=== PATIENT | male | born 2000 | race Caucasian/White ===

== ENCOUNTER 2024-08-26 19:24 | Emergency (ER) | payer OTHER, SELFPAY ==
--- OUTSIDE RECORDS SUMMARY | 2024-08-26 19:30 | XMS_ITS | Clinical Summary ---
Author Organization [address] Address [address] [place] [address] Care Team Providers Care Journeyman Millwright Name Role Phone Tray Burrows MD Primary Care Provider [phone] Allergies No known active allergies Medications albuterol HFA (PROVENTIL HFA,VENTOLIN HFA,PROAIR HFA) 90 mcg/actuation inhalerIndications :Viral syndrome Inhale 2 puffs every 4 (four) hours as needed for wheezing or shortness of breath (cough) 18 g 4 Active inhalational spacing device (Aerochamber MV) spacerIndications: Viral syndrome Use with albuterol inhaler 1 each 4 Active ondansetron ODT (ZOFRAN-ODT) 4 mg disintegrating tabletIndications: Viral syndrome Take 1 tablet (4 mg total) by mouth every 8 (eight) hours as needed for nausea or vomiting 12 tablet 4 Active Active Problems No known active problems Encounters Date Type Department Care Team Description 07/18/2024 Telephone [facility] [address] [place] [address] Viry Smith NP from Last 3 Months Medical History Medical History Date Comments Atrial septal defect Patent fora men ovale - (Added by TW Conv) Social History Tobacco Use Types Packs/Day Years Used Date Smoking Tobacco: Never Assessed Sex and Gender Information Value Date Recorded Sex Assigned at Not on file Legal 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 Gender Identity Not on file Sexual Orientation Not on file Obstetrics History Last Filed Vital Signs Vital Sign Reading Time Taken Comments Blood Pressure 144/90 02/13/2024 10:13 AM BUILDING OFFICIAL Pulse 110 02/13/2024 10:13 AM BUILDING OFFICIAL Temperature 37.7 C (99.8 F) 02/13/2024 10:13 AM BUILDING OFFICIAL Respiratory Rate 18 02/13/2024 10:13 AM BUILDING OFFICIAL Oxygen Saturation 98% 02/13/2024 10:13 AM BUILDING OFFICIAL Inhaled Oxygen Concentration - - Weight 102.1 kg (225 lb) 02/13/2024 10:13 AM BUILDING OFFICIAL Height 177.8 cm (5' 10) 02/13/2024 10:13 AM BUILDING OFFICIAL Body Mass Index 32.28 02/13/2024 10:13 AM BUILDING OFFICIAL Plan of Treatment Health Maintenance Due Date Last Done Comments Depression Screening 2002 Hepatitis C Screening 2002 HPV Vaccines (2 - Male 2-dos e series) 03/23/2017 09/20/2016 Meningococcal B Vaccine (1 o f 2 - Standard) 2018 Regular Well Visit/Exam 18-64 02/22/2020 Covid-19 Vaccine (2 - 2023-2 5 season) 2023 11/15/2021 DTaP/Tdap/Td Vaccine (7 - Td or Tdap) 11/29/2023 11/28/2013, 11/28/2013, 06/10/2003, Additional history exists Influenza Vaccine (#1) 2024 11/16/2021, 2002 Hepatitis B Screening Completed 2002 , 2002, 2002 Pneumococcal vaccine <65 Completed 004, 2002, 2002, Additional history exists Varicella Vaccines Completed 09/20/2016, 06/10/2003 [place] [facility] [place] [address] Care Teams Journeyman Millwright Relationship Specialty Start Date End Date Tray Burrows MD [address] [place] [address] PCP - General 04/13/11
--- OUTSIDE RECORDS SUMMARY | 2024-08-26 19:30 | XMS_ITS | Referral Summary ---
Author Organization [facility] [place] [address] [facility] Address [address] [place] [address] Care Team Providers Care Slasher Operator Name Role Phone Tray Burrows MD Primary Care Provider [phone] Encounters Date Type Department Care Team Description 07/18/2024 Telephone [facility] [address] [place] [address] Viry Smith NP from Last 3 Months Allergies No known active allergies Medications albuterol [...] Active Active Problems No known active problems Social History Tobacco Use Types Packs/Day Years Used Date Smoking Tobacco: Never Assessed Sex and Gender Information Value Date Recorded Sex Assigned at Not on file 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 Gender Identity Not on file Sexual Orientation Not on file Last Filed Vital Signs Vital Sign Reading Time Taken Comments Blood Pressure 144/90 02/13/2024 10:13 AM SENIOR CONSTRUCTION PROJECT MANAGER Pulse 110 02/13/2024 10:13 AM SENIOR CONSTRUCTION PROJECT MANAGER Temperature 37.7 C (99.8 F) 02/13/2024 10:13 AM SENIOR CONSTRUCTION PROJECT MANAGER Respiratory Rate 18 02/13/2024 10:13 AM SENIOR CONSTRUCTION PROJECT MANAGER Oxygen Saturation 98% 02/13/2024 10:13 AM SENIOR CONSTRUCTION PROJECT MANAGER Inhaled Oxygen Concentration - - Weight 102.1 kg (225 lb) 02/13/2024 10:13 AM SENIOR CONSTRUCTION PROJECT MANAGER Height 177.8 cm (5' 10) 02/13/2024 10:13 AM SENIOR CONSTRUCTION PROJECT MANAGER Body Mass Index 32.28 02/13/2024 10:13 AM SENIOR CONSTRUCTION PROJECT MANAGER Plan of Treatment Not on file Insurance [facility] H[facility] Care Teams Slasher Operator Relationship Specialty Start Date End Date Tray Burrows MD [address] [place] [address] PCP - General 04/13/11
[2024-08-26 19:32] VITALS: BP 141/59; PULSE 58; RESP 16; TEMP 36.8; O2SAT 99
--- NOTE | 2024-08-26 20:06 | ED.SKABFB ---
HPI - Skin/Abscess/Foreign Bdy General Chief complaint: Skin/Abscess/Foreign Body Stated complaint: right big toe ingrown toenail Time Seen by Provider: 08/26/24 19:30 Source: patient and RN notes reviewed Mode of arrival: ambulatory Limitations: no limitations History of Present Illness HPI narrative: 24-year-old male presents Express Care complaining of possible ingrown toenail to his right toe. Says been going on for the last week. Patient tried to remove the toenail himself he was in a Q-tip. Patient reports thick drainage of blood coming out of it. Patient reports he cuts his tone is very short. Related Data Allergies Allergy/AdvReac Type Severity Reaction Status Date / Time No Known Allergies Allergy Verified 08/26/24 19:35 Review of Systems Review of Systems: CONSTITUTIONAL: Denies fever, chills, or sweats. EYES: Denies visual changes, redness, or discharge. ENT: Denies rhinorrhea, congestion, sore throat, or otalgia. CARDIOVASCULAR: Denies chest pain, palpitations, or edema. RESPIRATORY: Denies cough or dyspnea. GASTROINTESTINAL: Denies abdominal pain, nausea, vomiting, or diarrhea. GENITOURINARY: Denies dysuria or hematuria. SKIN: Denies rash or itching. Positive for redness and swelling to toe. MUSCULOSKELETAL: Denies back pain, joint pain, or myalgia. NEUROLOGIC: Denies headache, numbness, or weakness. PSYCHIATRIC: Denies anxiety or depression. All other systems reviewed are negative, except as documented in HPI. PMFSH Comments At the time of my signature, I reviewed and agree with the nursing past medical, surgical, social, and family history. There is no relevant family history pertinent to the patient complaint. Exam Narrative: GENERAL: This is a well-nourished, well-developed adult, in no apparent distress. They are non ill-appearing, nontoxic appearing. HEAD: normocephalic, atraumatic. EYES: Sclera clear/white. Conjunctiva normal. Vision is grossly intact. Extraocular movements intact EARS: External ears normal,Hearing grossly intact. NOSE: External nose normal THROAT: Mucous membranes moist, NECK: Neck supple, CARDIOVASCULAR: Regular rate and rhythm RESPIRATORY: Respiratory rate normal, respiratory effort nonlabored, no respiratory distress SKIN: warm, Dry, intact with no suspicious lesions or rash, good texture and turgor. NEURO: awake, alert, and oriented to person, place and time. There were no obvious focal neurologic abnormalities. EXTREMITIES: Right great toe: Medial side of toe is erythematous with purulent drainage present. No area of fluctuance, no induration. Tenderness to palpation to the swelling. Toenail is intact in short. Ingrown toenail present. Course Course Emergency Course: Portions of this record may have been created with voice recognition software Level of Care: Express Care Visit Vital Signs Vital signs: Vital Signs Temperature 98.3 F 08/26/24 19:32 Pulse Rate 58 L 08/26/24 19:32 Respiratory Rate 16 08/26/24 19:32 Blood Pressure 141/59 H 08/26/24 19:32 Pulse Oximetry 99 08/26/24 19:32 Oxygen Delivery Room Air 08/26/24 19:32 Temperature 98.3 F 08/26/24 19:32 Pulse Rate 58 L 08/26/24 19:32 Respiratory Rate 16 08/26/24 19:32 Blood Pressure 141/59 H 08/26/24 19:32 Pulse Oximetry 99 08/26/24 19:32 Oxygen Delivery Room Air 08/26/24 19:32 Reviewed MDM - Skin/Abscess/Foreign Bdy MDM Narrative Medical decision making narrative: Patient has ingrown toenail with paronychia. Evidence of abscess formation. Paronychia is actively draining. Since there is purulence drainage will go ahead and cover for infection with cephalexin. Will also prescribe triamcinolone cream to help with swelling. Will refer patient to podiatry. Discussed physical exam findings. Advised supportive measures and signs/symptoms to go to the ER. Pt is appropriate for outpt treatment and f/u. Differential Diagnosis Differential diagnosis: Likely other (Paronychia, ingrown toenail, cellulitis) Critical Care Time Critical Care Time Critical Care Time: No Discharge Plan Discharge Clinical Impression: Paronychia of toe of right foot due to ingrown toenail Patient Disposition: Home Condition: Stable Instructions: Antibiotic Form, Paronychia (ED), Ingrown Nail (ED) Additional Instructions: Soak the affected foot in warm soapy water for 10-20 minutes twice daily followed by triamcinolone cream to the affected toe twice a day for 2 weeks. Take the antibiotics as directed. Follow-up with podiatry for further evaluation management of your ingrown toenail. If you developed worsening redness, swelling, pain, drainage, fevers, or any other concerns please go to the ER immediately. Patient Language: Turkmen Prescriptions: New triamcinolone acetonide 0.5 % cream 1 applic topical BID 14 Days Qty: 15 0RF Rx Instructions: Applied to the affected toe cephalexin 500 mg capsule 500 mg PO Q6H 7 Days Qty: 28 0RF Follow-up/Referrals: Jaleel Wright DPM [Physician] - PHYSICIAN,INKJET OPERATOR [Primary Care Provider] - Time of Disposition: 19:49
== END 2024-08-26 19:54 | disposition home or self-care (01) ==
DX: L03.031 Cellulitis of right toe (principal); L60.0 Ingrowing nail
CPT/HCPCS: 99213; G0463